=== PATIENT | male | born 1995 | race Hispanic/Latino ===

== ENCOUNTER 2016-03-21 07:19 | Day surgery (SDC) | payer OTHER ==
[2016-03-21] VITALS (12 sets, daily range): BP systolic 109–138; BP diastolic 40–68; PULSE 54–90; RESP 12–16; O2SAT 97–100
[~2016-03-21] VITALS: Ht 172.7 cm; Wt 75.8 kg
[~2016-03-21 07:19] MED LIST: ALBU8.5H2 INHALATION; CETI10CA PO; CeFAZolin 2 Gm/50 mL D5W IV Premix IV ONE; HYDR-4003 PO; Lactated Ringer's 1,000 ML IV SCH
[2016-03-21] MEDS ORDERED: Ondansetron 2 mg/mL 2 mL Inj ONE (07:20)
[2016-03-21] MEDS ORDERED: Succinylcholine Chloride 20 mg/mL 5 mL Inj ONE (07:20)
[2016-03-21] MEDS ORDERED: Lidocaine PF 1% 30 mL Inj ONE (07:20)
[2016-03-21] MEDS ORDERED: Dexamethasone 4 mg/mL Inj ONE (07:20)
[2016-03-21] MEDS ORDERED: Propofol 10,000 mCg/mL 20 mL Inj ONE (07:20)
[2016-03-21] MEDS ORDERED: Rocuronium 10 mg/mL 5 mL Inj ONE (07:20)
[2016-03-21] MEDS ORDERED: fentaNYL-PF 50 mCg/mL 2 mL Inj ONE (07:20)
--- NOTE | 2016-03-21 08:18 | PCM.HPANE ---
Patient Data Surgeon Admitting Provider: Attending Provider:Juno Burr DO Primary Care Physician:Storm Other Provider:Vivian Russo Anesthesia Reason for Visit Right Clavical Fracture Ht/WT & BMI Height (Feet): 5 Height (Inches): 8 Weight (Kilograms): 75.84 Body Mass Index 25.00, 25.00 Allergies Coded Allergies: No Known Allergies (Unverified , 03/19/16) Past Anesthesia History Anesthesia History: Denies:: Abnormal Airway, Anesthesia Reactions, Difficult Intubation, Fam Anesthesia Reaction Diabetes History Hx Diabetes?: No MRSA MRSA: No Medications Hypertension Medication: No Home Meds Incl Beta John: No Reported Medications Albuterol HFA (Proair HFA)8.5 Gm Hfa.aer.ad2 Puffs INHALATION Q4H PRN For Shortness of Breath #1 INHALER 03/19/16 Hydrocodone-Acetaminophen 5-325 mg 1 Each Tablet1 Tablet PO Q6H PRN For Pain Ref 0 03/19/16 Cetirizine HCl (Zyrtec)10 Mg [id number] Mg PO HS #30 CAPSULE Ref 0 03/19/16 History HEENT History: Denies:: Abnormal Airway Cataracts Difficult Intubation Dysphagia Glaucoma Hearing Problem Sinus Problem TMJ Cardiovascular History: Denies:: AICD Abdominal Aortic Aneurism Cardiac Surgery Chest Pain Congestive Heart Failure Coronary Artery Disease Edema Heart Murmur Hypertension Irregular Heartbeat Pacemaker Hx of Respiratory Problem?: Yes Respiratory History: Positive for:: Asthma (exercise induced ) Use of Inhalers / NEBS Denies:: COPD Emphysema Oxygen Administration Pneumonia Tuberculosis Use of C-PAP Machine Hx Neurologic Problems?: No Neurological History: Denies:: CVA Headaches Multiple Sclerosis Parkinson's Disease Seizures TIA Hx of GI Problems?: No Gastrointestinal History: Denies:: Diverticulitis Gall Bladder Disease Gastroesphageal Reflux Gastrointestinal Bleeding Heartburn Hepatitis Hiatal Hernia Liver Disease Hx of Problems?: No Genitourinary History: Denies:: Kidney Stones Urinary Tract Infection Male Hx: Denies:: Prostate Problems Scrotal Mass Testicular Surgery Skin History: Denies:: History Skin Disorders? Pressure Ulcers Hx Musculoskeletal Problems?: Yes Musculoskeletal History: Positive for:: Musculoskeletal Trauma (right clavicle fracture current admission problem) Denies:: Back Injury Degenerative Joint Fibromyalgia Joint Replacement Osteoarthritis Hx of Psycho/Social Problems?: No Psycho Social History: Denies:: Anxiety Hx Depression Hx Surgeries?: Yes (as baby for clavicle as well) Hx Any Other Health Problems?: Yes Other History: Denies:: Cancer Thyroid Disease History Blood Transfusions: Positive for:: Accept Blood Products? Denies:: Blood Transfusions Hx Diabetes: No Hx Alcohol Use: NoHx Substance Use: NoHave You Smoked inLast 12 mo: No Stop/Bang S-Snoring: Do You Snore Loudly: No T-Tired: feel tired, fatigued: No O-Obsered: Observed not breath: No P-Blood Pressure: treated: No B- Body Mass Index > 35 kg/m2: No A- Age over 50: No N- Neck Large Circumference: No G- Gender Male: Yes MARYAN Total Score: 1 Risk Assessment Category Category 1A: Patient has history of documented sleep apnea, and HAS NOT received any narcotic, sedative or anesthesia administration during this stay. Category 1B: Patient has history of documented sleep apnea, and HAS received any narcotic , sedative or anesthesia administration during this stay Category 2: Patient has SUSPECTED Obstructive Sleep Apnea, and HAS received any narcotic , sedative or anesthesia administration during this stay. Category 3: Patient has SUSPECTED Obstructive Sleep Apnea and HAS NOT received narcotic, sedative or anesthesia administration during this stay. Category 4: Outpatient in Procedural Areas with known sleep apnea or who screen positive for High Risk via the STOP/BANG questionnaire. Exam Exam Vital Signs Vital Signs Date Time Temp Pulse Resp B/P Pulse Ox O2 Delivery O2 Flow Rate FiO2 03/21/16 08:08 36.5 54 14 109/58 97 Room Air General Appearance: Alert, Oriented X3, Cooperative HEENT/AIRWAY: MP 2 Lungs: Normal Air Movement Heart: Regular Rate/Rhythm Plan Impression Patient chart reviewed, patient interviewed and anesthestic plan with risks, benefits, and alternatives discussed, and informed consent obtained. ASA Physical Status: ASA2 Mod Systemic Disease Anesthetic Plan: GA Bene/Risks/Altern/Consents: Yes HP Complete Prior to Induction: Yes Josie Metz DO Mar 21, 2016 08:17
[2016-03-21] MEDS ORDERED: Lactated Ringer's 1,000 ML IV ONE (08:20)
[2016-03-21] MEDS ORDERED: Lidocaine 1%-Epi 1:100,000 20 mL Inj INJ ONE (10:00)
[2016-03-21] MEDS ORDERED: Lactated Ringer's 1,000 ML IV SCH (10:28)
[2016-03-21] MEDS ORDERED: Lactated Ringer's 500 ML IV PRN (10:28)
[2016-03-21] MEDS ORDERED: HYDROmorphone 1 mg/mL Inj IVPUSH PRN (10:30)
[2016-03-21] MEDS ORDERED: MetoCLOpramide 5 mg/mL 2 mL Inj IVPUSH PRN (10:30)
[2016-03-21] MEDS ORDERED: Ondansetron 2 mg/mL 2 mL Inj IVPUSH PRN (10:30)
[2016-03-21] MEDS ORDERED: fentaNYL-PF 50 mCg/mL 2 mL Inj IVPUSH PRN (10:30)
[2016-03-21] MEDS ORDERED: HYDROcodone-APAP 5-325 mg Tablet PO PRN (11:35)
--- NOTE | 2016-03-21 12:39 | PCM.ANEP1 ---
Post Anesthesia Phase 1 PACU Phase 1 Assessment Vital Signs Vital Signs Date Time Temp Pulse Resp B/P Pulse Ox O2 Delivery O2 Flow Rate FiO2 03/21/16 12:35 79 13 138/60 98 Room Air 03/21/16 12:30 36.6 71 13 136/58 99 Room Air 03/21/16 12:20 84 14 138/57 100 Room Air 03/21/16 12:15 81 12 135/57 99 Room Air 03/21/16 12:10 74 12 119/61 99 Simple Mask 8 03/21/16 12:05 77 12 118/40 99 Simple Mask 8 03/21/16 12:00 78 13 116/40 99 Simple Mask 8 03/21/16 11:55 36.4 80 12 117/44 99 Simple Mask 8 03/21/16 08:08 36.5 54 14 109/58 97 Room Air Anesthetic Administered: GA Level of Alertness: Sleeping, hard to arouse DUFF's with Equal Strength: Yes Pain: No Nausea or Vomiting: No Oxygen Delivery: Simple Mask Lungs: Normal Air Movement Josie Metz DO Mar 21, 2016 12:39
--- NOTE | 2016-03-21 12:39 | PCM.ANEP2 ---
Post Anesthesia Evaluation ASA/CMS Post Anesthesia VS in Patient's Normal Range?: Yes Resp Stable; Airway Patent?: Yes CV Function & Hydration Stable: Yes Mental Status Recovered?: Yes Pain control Satisfactory?: Yes N/V Control Satisfactory?: Yes Josie Metz DO Mar 21, 2016 12:39
--- NOTE | 2016-03-22 08:52 | OP ---
[address] [address] OPERATIVE REPORT PATIENT: YUDELKA KEANE : 1995 MR#: [id number] ADMIT: 03/21/2016 JOB ID: [id number] DATE OF SURGERY: 03/21/2016 PREOPERATIVE DIAGNOSIS(ES): Right comminuted midshaft clavicle fracture. POSTOPERATIVE DIAGNOSIS(ES): Right comminuted midshaft clavicle fracture. PROCEDURE: Open reduction and internal fixation of right midshaft clavicle fracture. SURGEON: Juno Burr DO. WAVE SOLDERING MACHINE OPERATOR: Lopez Ying PA-C. The assistance of Lopez Ying PA-C was necessary for help with retraction and for the reduction of the fracture, as well as for closure at the conclusion of the case. ANESTHESIA: General. HISTORY: The patient is a pleasant 20-year-old male that was skateboarding at [employer] when he fell directly onto his right shoulder. He had a significantly displaced midshaft clavicle fracture. His parents flew him home to [place] and had a followup with me to be evaluated for continued further treatment. He had an area of a butterfly fragment that was starting to tent and push at the skin. Thus, I discussed with the patient, due to the amount of displacement and the tenting of the skin, to proceed with surgery for open reduction and internal fixation of the right clavicle fracture. They understood the risks to include, but not limited to, neurovascular injury, tendon injury, infection, failure of fixation, stiffness, persistent pain, all of which may require further intervention. The patient had all questions answered. Consent was signed and placed in the chart. PROCEDURE IN DETAIL: The patient was brought to the operative suite and placed supine on the operating room table. Surgical time-out performed. Everyone in the room was in agreement. After appropriate anesthesia was obtained, the right shoulder was prepped and draped in a sterile fashion. An incision was made centered overlying the clavicle shaft fracture. Dissection was carried down taking care to protect any branches of the supraclavicular nerves. The overlying fascia was next incised. The fracture fragments were identified including the free butterfly fragment that was rotated 90 degrees. Copious irrigation and nonexcisional debridement were performed to remove any fracture hematoma. The butterfly fragment was first lagged to the lateral clavicle fragment utilizing a 2.7 mm cortical screw. This was followed by then lagging the medial main clavicle fragment to the butterfly fragment also with an additional 2.7 mm cortical screw. Position of the screws and the alignment were verified under fluoroscopy. This was followed by application of a 9-hole Synthes lateral anterior clavicle plate. This was held provisionally with K-wires, followed by application of nonlocking screws both proximal and distal to the comminuted segment to pull the plate to the anterior cortex of the clavicle. Fluoroscopic projections again were utilized to verify appropriate placement of the plate and appropriate length of the screws. Completion of fixation was performed utilizing a combination of locking and nonlocking screws both proximally and distally within the shaft. Final radiographic projections were obtained. Copious irrigation was performed, followed by closure of the underlying fascia with 0 Vicryl, 4-0 Vicryl for the subcutaneous tissue and 4-0 Monocryl for the skin. This was reinforced with Mastisol and Steri-Strips. The patient was then placed in a bulky sterile dressing. ESTIMATED BLOOD LOSS: 25 cc. COMPLICATIONS: None. DISPOSITION: The patient tolerated the procedure well. Anesthesia was reversed. The patient was transferred to the PACU for recovery. IMPLANTS: A Synthes 9-hole anterior lateral clavicle plate with a combination of locking and nonlocking screws. There were also two additional lag screws outside the plate. POSTOPERATIVE PLAN: The patient will follow up in my office in two weeks and will get repeat x-rays of his clavicle at that time. He will be in that sling for six weeks but can start initiating elbow and gentle pendulum exercises to the shoulder starting at the two week postop visit.
== END 2016-03-21 23:59 | disposition home or self-care (01) ==
LOC: SAS 07:19
PROVIDERS: ATTEND Orthopaedic Surgery
DX: S42.021A Displaced fracture of shaft of right clavicle, initial encounter for closed fracture (principal); J45.909 Unspecified asthma, uncomplicated
CPT/HCPCS: 23515; 76001; J0330; J0690; J1100; J2405; J3010; J7120